=== PATIENT | male | born 1950 ===

== ENCOUNTER 2020-09-04 14:54 | Inpatient (IN) ==
[2020-09-04 16:03] LABS: Red Cell Distribution Width 12.5 % (11.5-14.5)
[2020-09-04 16:05] LABS: Basophils # 0.1 K/mcL (0.0-0.2); Basophils % 0.5 %; Eosinophils # 0.1 K/mcL (0.0-0.6); Eosinophils % 1.3 %; Hematocrit 53.3 % (37.5-50.1); Immature Granulocytes % 0.4 % (0-4); Immature Platelets 40.9 % (1.1-6.1); Lymphocytes # 2.4 K/mcL (0.6-4.6); Lymphocytes % 21.8 %; Mean Corpuscular HGB Conc 33.8 g/dL (31.6-35.5); Mean Corpuscular Hemoglobin 30.1 pg (28.0-33.3); Mean Corpuscular Volume 89.1 fL (83.0-100.0); Monocytes # 0.8 K/mcL (0.0-1.3); Neutrophils # 7.5 K/mcL (1.6-8.9); Red Blood Count 5.98 M/mcL (4.19-5.50); White Blood Count 10.8 K/mcL (4.3-11.1)
[2020-09-04 16:20] LABS: BUN/Creatinine Ratio 11 (6-26); Blood Urea Nitrogen 10 mg/dL (8-23); Calcium 8.8 mg/dL (8.6-10.3); Carbon Dioxide 27 mEq/L (23-29); Chloride 100 mEq/L (98-107); Glucose 249 mg/dL (70-105); Osmolality,Calculated 287 (280-300); Potassium 4.2 mEq/L (3.5-5.1); Sodium 135 mEq/L (136-145); eGFR For African Americans > 60 (> 60); eGFR For Non-African Americans > 60 (> 60)
[2020-09-04 16:29] LABS: Platelet Count < 2 K/mcL (140-400)
[2020-09-04 16:30] LABS: Platelet Estimate Marked Decrease (Normal); Reactive Lymphocytes Present (Not Present)
[2020-09-04 17:08] LABS: Alanine Aminotransferase 31 Units/L (7-52); Albumin 4.1 g/dL (3.5-5.7); Albumin/Globulin Ratio 1.4 (1.1-2.2); Alkaline Phosphatase 109 Units/L (34-104); Aspartate Amino Transferase 20 Units/L (13-39); Bilirubin,Direct 0.1 mg/dL (0.0-0.2); Bilirubin,Indirect 0.5 mg/dL (0.0-1.0); Bilirubin,Total 0.6 mg/dL (0.3-1.0); INR 1.1; Prothrombin Time 12.2 Seconds (9.4-12.1); Total Protein 7.1 g/dL (6.4-8.9)
[2020-09-04] MEDS ORDERED: Dexamethasone 4 MG/ML VIAL IVP ONE (17:19)
[2020-09-04] MEDS ORDERED: Naloxone 0.4 MG/ML INJ IVP PRN (17:45)
[2020-09-04] MEDS ORDERED: *HR* Dextrose 50 % in Water (Vial) 50 ML VIAL IVP PRN (17:49)
[2020-09-04] MEDS ORDERED: Dextrose Gel 15 GM/37.5 ML TUBE PO PRN ×2 (17:49)
[2020-09-04] MEDS ORDERED: D5% in Water 1,000 ML IVC PRN (17:49)
[2020-09-04] MEDS ORDERED: Albuterol 2.5 MG/3 ML NEBULIZER IH PRN (18:07)
[2020-09-04] MEDS ORDERED: 0.9 % Sodium Chloride 250 ML ONE (18:40)
[2020-09-04] MEDS ORDERED: Insulin DETEMIR 100 UNIT/ML X5UNITS SQ SCH (21:00)
[2020-09-04 21:02] LABS: Basophils % 0.7 %; Eosinophils % 1.3 %; Monocytes % 6.9 %
[2020-09-04 21:04] LABS: Basophils # 0.1 K/mcL (0.0-0.2); Eosinophils # 0.1 K/mcL (0.0-0.6); Hematocrit 53.7 % (37.5-50.1); Hemoglobin 17.9 g/dL (12.9-16.9); Immature Granulocytes % 0.5 % (0-4); Immature Platelets 10.6 % (1.1-6.1); Lymphocytes # 2.4 K/mcL (0.6-4.6); Lymphocytes % 22.2 %; Mean Corpuscular HGB Conc 33.3 g/dL (31.6-35.5); Mean Corpuscular Hemoglobin 29.6 pg (28.0-33.3); Mean Corpuscular Volume 88.8 fL (83.0-100.0); Monocytes # 0.8 K/mcL (0.0-1.3); Neutrophils # 7.5 K/mcL (1.6-8.9); Red Blood Count 6.05 M/mcL (4.19-5.50); Red Cell Distribution Width 12.4 % (11.5-14.5); Segmented Neutrophils % 68.4 %; White Blood Count 10.9 K/mcL (4.3-11.1)
[2020-09-04 21:07] LABS: Platelet Count 3 K/mcL (140-400)
[2020-09-04 21:31] LABS: Platelet Estimate Marked Decrease (Normal); Reactive Lymphocytes Present (Not Present)
[2020-09-04] MEDS: Insulin LISPRO 300 UNITS/3 ML VIAL SQ SCH (22:00)
[2020-09-05 02:00] LABS: Hemoglobin 17.1 g/dL (12.9-16.9)
[2020-09-05 02:02] LABS: Basophils % 0.3 %; Hematocrit 51.5 % (37.5-50.1); Immature Granulocytes % 0.8 % (0-4); Immature Platelets 14.9 % (1.1-6.1); Lymphocytes # 0.7 K/mcL (0.6-4.6); Lymphocytes % 11.8 %; Mean Corpuscular HGB Conc 33.2 g/dL (31.6-35.5); Mean Corpuscular Hemoglobin 29.7 pg (28.0-33.3); Mean Corpuscular Volume 89.4 fL (83.0-100.0); Monocytes # 0.1 K/mcL (0.0-1.3); Monocytes % 1.1 %; Neutrophils # 5.4 K/mcL (1.6-8.9); Red Blood Count 5.76 M/mcL (4.19-5.50); Red Cell Distribution Width 12.3 % (11.5-14.5); White Blood Count 6.3 K/mcL (4.3-11.1)
[2020-09-05 02:07] LABS: Platelet Count 2 K/mcL (140-400)
[2020-09-05 02:10] LABS: BUN/Creatinine Ratio 14 (6-26); Blood Urea Nitrogen 14 mg/dL (8-23); Calcium 8.5 mg/dL (8.6-10.3); Carbon Dioxide 23 mEq/L (23-29); Chloride 99 mEq/L (98-107); Glucose 472 mg/dL (70-105); Osmolality,Calculated 295 (280-300); Phosphorous 2.6 mg/dL (2.7-4.5); Sodium 132 mEq/L (136-145); eGFR For African Americans > 60 (> 60); eGFR For Non-African Americans > 60 (> 60)
[2020-09-05] MEDS ORDERED: Magnesium Sulfate 1 GM/102 ML PIGGYBACK IVPB ONE (07:00)
[2020-09-05] MEDS ORDERED: Loratadine 10 MG TABLET PO PRN (07:08)
[2020-09-05] MEDS ORDERED: 0.9 % Sodium Chloride 250 ML IVC SCH (07:15)
[2020-09-05 08:20] LABS: Estimated Average Glucose 255 mg/dl
[2020-09-05] MEDS: Cholecalciferol (D-3) 1,000 UNIT (25MCG) TABLET PO SCH (08:45)
[2020-09-05] MEDS: amLODIPine 5 MG TABLET PO SCH (08:46)
[2020-09-05] MEDS: Insulin DETEMIR 100 UNIT/ML X5UNITS SQ SCH ×2 (08:46→21:01)
[2020-09-05] MEDS: Insulin LISPRO 300 UNITS/3 ML VIAL SQ SCH ×7 (08:47→21:01)
[2020-09-05] MEDS ORDERED: Dexamethasone Sodium Phos/PF 10 MG/ML VIAL IVP ONE (09:06)
[2020-09-05 09:48] LABS: Basophils % 0.1 %; Hemoglobin 16.8 g/dL (12.9-16.9)
[2020-09-05 09:50] LABS: Hematocrit 48.7 % (37.5-50.1); Immature Granulocytes % 0.9 % (0-4); Immature Platelets 19.1 % (1.1-6.1); Lymphocytes # 0.9 K/mcL (0.6-4.6); Lymphocytes % 11.1 %; Mean Corpuscular HGB Conc 34.5 g/dL (31.6-35.5); Mean Corpuscular Hemoglobin 30.5 pg (28.0-33.3); Mean Corpuscular Volume 88.4 fL (83.0-100.0); Monocytes # 0.2 K/mcL (0.0-1.3); Monocytes % 2.7 %; Neutrophils # 6.7 K/mcL (1.6-8.9); Red Blood Count 5.51 M/mcL (4.19-5.50); Red Cell Distribution Width 12.1 % (11.5-14.5); Segmented Neutrophils % 85.2 %; White Blood Count 7.8 K/mcL (4.3-11.1)
[2020-09-05 09:56] LABS: Platelet Count 2 K/mcL (140-400)
[2020-09-05 10:28] LABS: Immature Reticulocyte % 9.2 % (11.0-38.0); Retculocyte # 0.07 M/mcL (0.05-0.10); Reticulocyte % 1.3 % (1.6-2.8)
[2020-09-05] MEDS ORDERED: IVIG (wt based) Privigen 5 GM/50 ML INFUS..BTL IVC SCH (11:30)
[2020-09-05] MEDS ORDERED: IMMUNE GLOBULIN IVC SCH (12:30)
[2020-09-05] MEDS: Immune Glob, Gamma (Gammagard) 20 GM/200 ML INFUS..BTL IVC SCH ×2 (15:02→16:57)
[2020-09-05] MEDS: Immune Glob, Gamma (Gammagard) 5 GM/50 ML INFUS..BTL IVC SCH (17:38)
[2020-09-06 03:32] LABS: Mean Corpuscular HGB Conc 34.3 g/dL (31.6-35.5); Red Cell Distribution Width 12.3 % (11.5-14.5)
[2020-09-06 03:34] LABS: Hematocrit 46.4 % (37.5-50.1); Hemoglobin 15.9 g/dL (12.9-16.9); Immature Platelets 24.4 % (1.1-6.1); Mean Corpuscular Hemoglobin 29.9 pg (28.0-33.3); Mean Corpuscular Volume 87.2 fL (83.0-100.0); Mean Platelet Volume 13.2 fL (9.4-12.4); Red Blood Count 5.32 M/mcL (4.19-5.50); White Blood Count 11.7 K/mcL (4.3-11.1)
[2020-09-06] MEDS: amLODIPine 5 MG TABLET PO SCH (07:52)
[2020-09-06] MEDS: Cholecalciferol (D-3) 1,000 UNIT (25MCG) TABLET PO SCH (07:52)
[2020-09-06] MEDS: hydroCHLOROthiazide 25 MG TABLET PO SCH (07:52)
[2020-09-06] MEDS: Insulin LISPRO 300 UNITS/3 ML VIAL SQ SCH ×7 (07:53→20:14)
[2020-09-06] MEDS: Insulin DETEMIR 100 UNIT/ML X5UNITS SQ SCH ×2 (07:55→20:14)
[2020-09-06] MEDS: Immune Glob, Gamma (Gammagard) 20 GM/200 ML INFUS..BTL IVC SCH ×2 (10:02→11:39)
[2020-09-06] MEDS: Dexamethasone 4 MG/ML VIAL IVP SCH (10:09)
[2020-09-06 12:06] LABS: Folate 8.9 ng/mL (3.0-16.0)
[2020-09-06] MEDS: Immune Glob, Gamma (Gammagard) 5 GM/50 ML INFUS..BTL IVC SCH (12:22)
[2020-09-06] MEDS ORDERED: Insulin LISPRO 300 UNITS/3 ML VIAL SQ ONE (21:40)
[2020-09-07 04:04] LABS: Red Cell Distribution Width 12.1 % (11.5-14.5)
[2020-09-07 04:06] LABS: Basophils % 0.2 %; Hematocrit 46.6 % (37.5-50.1); Hemoglobin 15.7 g/dL (12.9-16.9); Immature Platelets 21.9 % (1.1-6.1); Lymphocytes # 1.2 K/mcL (0.6-4.6); Lymphocytes % 10.8 %; Mean Corpuscular HGB Conc 33.7 g/dL (31.6-35.5); Mean Corpuscular Hemoglobin 29.1 pg (28.0-33.3); Mean Corpuscular Volume 86.3 fL (83.0-100.0); Mean Platelet Volume 13.6 fL (9.4-12.4); Monocytes # 0.6 K/mcL (0.0-1.3); Monocytes % 5.4 %; Neutrophils # 9.2 K/mcL (1.6-8.9); Segmented Neutrophils % 82.6 %; White Blood Count 11.1 K/mcL (4.3-11.1)
[2020-09-07 04:19] LABS: Platelet Count 14 K/mcL (140-400)
[2020-09-07 04:23] LABS: BUN/Creatinine Ratio 22 (6-26); Blood Urea Nitrogen 20 mg/dL (8-23); Calcium 8.6 mg/dL (8.6-10.3); Carbon Dioxide 30 mEq/L (23-29); Chloride 98 mEq/L (98-107); Glucose 281 mg/dL (70-105); Magnesium 1.7 mg/dL (1.6-2.6); Osmolality,Calculated 289 (280-300); Phosphorous 3.4 mg/dL (2.7-4.5); Potassium 3.9 mEq/L (3.5-5.1); Sodium 133 mEq/L (136-145); eGFR For African Americans > 60 (> 60); eGFR For Non-African Americans > 60 (> 60)
[2020-09-07] MEDS: Tiotropium 18 MCG inhalation IH SCH (07:22)
[2020-09-07] MEDS: hydroCHLOROthiazide 25 MG TABLET PO SCH (07:49)
[2020-09-07] MEDS: Cholecalciferol (D-3) 1,000 UNIT (25MCG) TABLET PO SCH (07:49)
[2020-09-07] MEDS: amLODIPine 5 MG TABLET PO SCH (07:49)
[2020-09-07] MEDS: Insulin LISPRO 300 UNITS/3 ML VIAL SQ SCH ×7 (07:50→20:13)
[2020-09-07] MEDS: Insulin DETEMIR 100 UNIT/ML X5UNITS SQ SCH ×2 (07:50→20:14)
[2020-09-07] MEDS: Immune Glob, Gamma (Gammagard) 20 GM/200 ML INFUS..BTL IVC SCH ×2 (07:52→10:07)
[2020-09-07] MEDS: Dexamethasone 4 MG/ML VIAL IVP SCH (07:53)
[2020-09-07] MEDS: Immune Glob, Gamma (Gammagard) 5 GM/50 ML INFUS..BTL IVC SCH (10:54)
[2020-09-08 03:38] LABS: Basophils % 0.1 %; Hemoglobin 16.2 g/dL (12.9-16.9)
[2020-09-08 03:41] LABS: Hematocrit 47.2 % (37.5-50.1); Immature Platelets 16.9 % (1.1-6.1); Lymphocytes # 1.2 K/mcL (0.6-4.6); Lymphocytes % 11.7 %; Mean Corpuscular HGB Conc 34.3 g/dL (31.6-35.5); Mean Corpuscular Hemoglobin 29.5 pg (28.0-33.3); Mean Corpuscular Volume 85.8 fL (83.0-100.0); Mean Platelet Volume 11.6 fL (9.4-12.4); Monocytes # 0.7 K/mcL (0.0-1.3); Neutrophils # 8.4 K/mcL (1.6-8.9); Red Cell Distribution Width 12.1 % (11.5-14.5); Segmented Neutrophils % 80.2 %; White Blood Count 10.5 K/mcL (4.3-11.1)
[2020-09-08 03:48] LABS: Platelet Count 27 K/mcL (140-400)
[2020-09-08 03:54] LABS: Magnesium 1.8 mg/dL (1.6-2.6); Phosphorous 3.3 mg/dL (2.7-4.5)
[2020-09-08] MEDS: Tiotropium 18 MCG inhalation IH SCH (07:17)
[2020-09-08 07:39] VITALS: BP 145/79
[2020-09-08] MEDS: Dexamethasone 4 MG/ML VIAL IVP SCH (08:07)
[2020-09-08] MEDS: amLODIPine 5 MG TABLET PO SCH (08:08)
[2020-09-08] MEDS: hydroCHLOROthiazide 25 MG TABLET PO SCH (08:08)
[2020-09-08] MEDS: Insulin LISPRO 300 UNITS/3 ML VIAL SQ SCH ×4 (08:08→11:37)
[2020-09-08] MEDS: Cholecalciferol (D-3) 1,000 UNIT (25MCG) TABLET PO SCH (08:09)
[2020-09-08] MEDS ORDERED: Insulin DETEMIR 100 UNIT/ML X5UNITS SQ SCH (09:00)
[2020-09-08 14:33] LABS: JAK2 (V617F) Mutation by PCR NOT DETECTED
== END 2020-09-08 15:23 | disposition home or self-care (01) | DRG 813 ==
LOC: EMEROOARM 14:54 → 2ANU 14:54 → SUATTDRO 18:42 → 2ANU 20:12
PROVIDERS: ADMIT Internal Medicine; ATTEND Internal Medicine